=== PATIENT | male | born 1985 | race African-American/Black ===

== ENCOUNTER 2022-11-12 22:01 | Emergency (ER) | payer BC ==
[2022-11-12] MEDS ORDERED: NA CHLORIDE 0.9% 100 ML ONE (22:59)
[2022-11-12] MEDS ORDERED: TRANEXAMIC ACID 1,000 MG/10 ML VIAL IV ONE (22:59)
--- NOTE | 2022-11-13 01:10 | ER ---
Nurse's Notes [facility] Name: Juwan Cannon Age: 37 yrs Sex: Male : 1985 Arrival Date: 11/12/2022 Time: 22:20 Bed 23 Private MD: Diagnosis: ANGIOEDEMA Presentation: 11/12 22:27 Chief complaint: Patient states: C/o upper lip swelling since 2 pm. Coronavirus screen: ll3 Vaccine status: Patient reports being unvaccinated. At this time, the client does not indicate any symptoms associated with coronavirus-19. Ebola Screen: No symptoms or risks identified at this time. Initial Sepsis Screen: Does the patient meet any 2 criteria? No. Patient's initial sepsis screen is negative. Does the patient have a suspected source of infection? No. Patient's initial sepsis screen is negative. Risk Assessment: Do you want to hurt yourself or someone else? Patient reports no desire to harm self or others. Onset of symptoms was November 12, 2022 at 14:00. 22:27 Method Of Arrival: Ambulatory 3 22:27 Acuity: BENTLEY 3 ll3 Triage Assessment: 22:29 General: Appears uncomfortable, Behavior is calm, cooperative. Pain: Complains of pain ll3 in upper lip Pain does not radiate. Pain currently is 7 out of 10 on a pain scale. Neuro: Level of Consciousness is awake, alert, obeys commands, Oriented to person, place, time, situation. Respiratory: Respiratory effort is even, unlabored, Respiratory pattern is regular, symmetrical. Derm: Swelling to upper lip. Historical: - Allergies: 22:29 No Known Allergies; ll3 - Home Meds: 22:29 Norvasc Oral [Active]; Lisinopril Oral [Active]; Aspirin Oral [Active]; ll3 - PMHx: 22:29 Hypertensive disorder; ll3 - PSHx: 22:29 None; ll3 - Immunization history:: Client reports having NOT received the Covid vaccine. - Social history:: Smoking status: Patient denies any tobacco usage or history of. Screenin:09 [facility] ED Fall Risk Assessment (Adult) History of falling in the last 3 months, bb including since admission No falls in past 3 months (0 pts). [facility] ED Fall Risk Assessment (Adult) Confusion or Disorientation No (0 pts) Intoxicated or Sedated No (0 pts) Impaired Gait No (0 pts) Altered Elimination Score/Fall Risk Level 0 - 2 = Low Risk Oriented to surroundings, Maintained a safe environment. Abuse screen: Denies threats or abuse. Nutritional screening: No deficits noted. Tuberculosis screening: No symptoms or risk factors identified. Assessment: 23:09 General: Appears in no apparent distress. uncomfortable, Behavior is calm, cooperative. bb Neuro: Level of Consciousness is awake, alert, obeys commands, Oriented to person, place, time, situation. Cardiovascular: Capillary refill < 3 seconds Patient's skin is warm and dry. Respiratory: Respiratory effort is even, unlabored, Respiratory pattern is regular. GI: No signs and/or symptoms were reported involving the gastrointestinal system. EENT: grossly swollen upper and lower lip. Derm: Skin is dry, Skin is normal, Skin temperature is warm. Musculoskeletal: Circulation, motion, and sensation intact. 23:38 Reassessment: Patient is alert, oriented x 3, equal unlabored respirations, skin bb warm/dry/pink. pt states he is feeling more pressure in his lips Dr Glasgow notified Patient states symptoms have not improved. 11/13 01:28 Reassessment: Patient is alert, oriented x 3, equal unlabored respirations, skin bb warm/dry/pink. pt instructed on need for transfer to [facility]. Patient states symptoms have not improved. 02:39 Reassessment: Patient is alert, oriented x 3, equal unlabored respirations, skin bb warm/dry/pink. [facility] 03:07 Reassessment: Patient is alert, oriented x 3, equal unlabored respirations, skin bb warm/dry/pink. EMS at bedside for transportation to [place]. IV site intact with no erythema or edema. Vital Signs: 11/12 22:27 BP 125 / 91; Pulse 84; Resp 17; Temp 98.7(O); Pulse Ox 100% on R/A; Weight 71.67 kg ll3 (R); Height 5 ft. 10 in. (177.80 cm) (R); Pain 7/10; 23:38 BP 147 / 103; Pulse 66; Resp 16 S; Pulse Ox 99% on R/A; bb 11/13 01:29 BP 127 / 87; Pulse 82; Resp 16 S; Temp 98(O); Pulse Ox 97% on R/A; bb 02:40 BP 136 / 94; Pulse 68; Resp 16 S; Pulse Ox 97% on R/A; bb 11/12 22:27 Body Mass Index 22.67 (71.67 kg, 177.80 cm) ll3 ED Course: 11/12 22:20 Patient arrived in ED. bb 22:21 Jorge Luis Glasgow MD is Attending Physician. sp3 22:29 Triage completed. ll3 22:29 Arm band placed on Patient placed in an exam room, on a stretcher, on pulse oximetry. ll3 23:05 Inserted saline lock: 20 gauge in right antecubital area, using aseptic technique. bb 23:09 Rita Dugan, RN is Primary Nurse. bb 23:09 Patient has correct armband on for positive identification. Adult w/ patient. pt bb accompanied by [facility] guards. 11/13 01:29 No provider procedures requiring assistance completed. Patient transferred, IV remains bb in place. Administered Medications: 11/12 23:09 Drug: Tranexamic Acid 1000 mg Route: IV; Rate: 10 calculated rate; Site: right bb antecubital; 23:19 Follow up: IV Status: Completed infusion; IV Intake: 100ml bb Medication: 23:09 VIS not applicable for this client. bb Intake: 23:19 IV: 100ml; Total: 100ml. bb Outcome: 11/13 01:10 ER care complete, transfer ordered by . sp3 01:29 Instructed on the need for transfer. bb 01:29 Condition: stable bb 03:06 Transferred by ground EMS Transfer form completed. Note: [facility] bb 03:08 Patient left the ED. bb Signatures: Rita Dugan, RN RN bb Jorge Luis Glasgow MD MD sp3 Surendra Pillai RN RN ll3
--- NOTE | 2022-11-13 01:10 | EDPHYS ---
Physician Documentation [facility] Name: Juwan Cannon Age: 37 yrs Sex: Male : 1985 Arrival Date: 11/12/2022 Time: 22:20 Bed 23 Private MD: ED Physician Jorge Luis Glasgow HPI: 11/12 23:08 This 37 yrs old Black Male presents to ER via Ambulatory with complaints of Lips sp3 Swelling. 23:08 37-year-old male with a history of hypertension on lisinopril presents from [place] [id number] facility for chief complaint of upper and lower lip swelling. Patient was initially evaluated by nurse practitioner there who ordered Benadryl and steroids which had no beneficial effect. Patient stated his angioedema was getting worse and so he was then transferred here for evaluation. Patient denies any swelling of his tongue or oropharynx as well as any rash. On review of systems, patient denies headache, neck pain, shortness of breath, chest pain, abdominal pain, nausea, vomiting, diarrhea, skin rash, focal neurodeficit, syncope, near syncope, fever, or any other symptoms at this time.. Historical: - Allergies: 22:29 No Known Allergies; ll3 - Home Meds: 22:29 Norvasc Oral [Active]; Lisinopril Oral [Active]; Aspirin Oral [Active]; ll3 - PMHx: 22:29 Hypertensive disorder; ll3 - PSHx: 22:29 None; ll3 - Immunization history:: Client reports having NOT received the Covid vaccine. - Social history:: Smoking status: Patient denies any tobacco usage or history of. ROS: 23:09 Constitutional: Negative for fever, chills, and weight loss, Eyes: Negative for injury, sp3 pain, redness, and discharge, Neck: Negative for injury, pain, and swelling, Cardiovascular: Negative for chest pain, palpitations, and edema, Respiratory: Negative for shortness of breath, cough, wheezing, and pleuritic chest pain, Abdomen/GI: Negative for abdominal pain, nausea, vomiting, diarrhea, and constipation, Back: Negative for injury and pain, MS/Extremity: Negative for injury and deformity, Skin: Negative for injury, rash, and discoloration, Neuro: Negative for headache, weakness, numbness, tingling, and seizure, Psych: Negative for depression, anxiety, suicide ideation, homicidal ideation, and hallucinations, Allergy/Immunology: Negative for hives, rash, and allergies. 23:09 All other systems are negative. Exam: 23:09 Constitutional: This is a well developed, well nourished patient who is awake, alert, sp3 and in no acute distress. Head/Face: Normocephalic, atraumatic. Eyes: Pupils equal round and reactive to light, extra-ocular motions intact. Lids and lashes normal. Conjunctiva and sclera are non-icteric and not injected. Cornea within normal limits. Periorbital areas with no swelling, redness, or edema. Neck: Trachea midline, no thyromegaly or masses palpated, and no cervical lymphadenopathy. Supple, full range of motion without nuchal rigidity, or vertebral point tenderness. No Meningismus. Chest/axilla: Normal chest wall appearance and motion. Nontender with no deformity. No lesions are appreciated. Cardiovascular: Regular rate and rhythm with a normal S1 and S2. No gallops, murmurs, or rubs. Normal PMI, no JVD. No pulse deficits. Respiratory: Lungs have equal breath sounds bilaterally, clear to auscultation and percussion. No rales, rhonchi or wheezes noted. No increased work of breathing, no retractions or nasal flaring. Skin: Warm, dry with normal turgor. Normal color with no rashes, no lesions, and no evidence of cellulitis. MS/ Extremity: Pulses equal, no cyanosis. Neurovascular intact. Full, normal range of motion. Neuro: Awake and alert, GCS 15, oriented to person, place, time, and situation. Cranial nerves II-XII grossly intact. Motor strength 5/5 in all extremities. Sensory grossly intact. Cerebellar exam normal. Normal gait. 23:09 ENT: Significant angioedema present upper greater than lower lip with no oropharynx involvement or tongue involvement. Patient is not any respiratory distress and his vital signs are normal with normal pulse oxygenation on room air.. Vital Signs: 22:27 BP 125 / 91; Pulse 84; Resp 17; Temp 98.7(O); Pulse Ox 100% on R/A; Weight 71.67 kg ll3 (R); Height 5 ft. 10 in. (177.80 cm) (R); Pain 7/10; 23:38 BP 147 / 103; Pulse 66; Resp 16 S; Pulse Ox 99% on R/A; bb 11/13 01:29 BP 127 / 87; Pulse 82; Resp 16 S; Temp 98(O); Pulse Ox 97% on R/A; bb 02:40 BP 136 / 94; Pulse 68; Resp 16 S; Pulse Ox 97% on R/A; bb 11/12 22:27 Body Mass Index 22.67 (71.67 kg, 177.80 cm) ll3 MDM: 11/12 22:54 Patient medically screened. sp3 23:10 Data reviewed: vital signs, nurses notes. 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 Patient is on lisinopril and is been on so for "several years". Given no oropharynx involvement, we will administer 1 g of TXA IV and evaluate patient's reaction. Suspecting histamine mediated reaction as this is likely bradykinin induced given his TANYA inhibitor usage. Not suspecting anaphylaxis or any other critical findings.. 11/13 00:44 ED course: Patient reevaluated and his angioedema appears to be getting worse with now sp3 worsening of the lower lip. TXA intravenously did not improve patient's symptoms. We will transfer patient to [facility] for general observation and possible further work-up as needed. Airway remains intact with no oropharynx swelling.. 01:09 ED course: Patient was accepted at [facility] under Dr. Gavin.. sp3 11/12 22:48 Order name: Saline Lock; Complete Time: 23:09 bb Administered Medications: 11/12 23:09 Drug: Tranexamic Acid 1000 mg Route: IV; Rate: 10 calculated rate; Site: right bb antecubital; 23:19 Follow up: IV Status: Completed infusion; IV Intake: 100ml bb Disposition Summary: 11/13/22 01:10 Transfer Ordered Transfer Location: [facility]-System sp3 Reason: Higher level of care sp3 Condition: Stable sp3 Problem: new sp3 Symptoms: have worsened sp3 Accepting Physician: Dr. Gavin(11/13/22 03:08) bb Diagnosis - ANGIOEDEMA sp3 Forms: - Medication Reconciliation Form sp3 - SBAR form sp3 Signatures: Rita Dugan RN RN bb Jorge Luis Glasgow MD MD sp3 Surendra Pillai RN RN ll3 Corrections: (The following items were deleted from the chart) 11/13 03:08 01:10 Dr. Gavin sp3 bb
[2022-11-13 03:32] VITALS: TEMP 98; O2SAT 97
[2022-11-13 03:33] VITALS: BP 136/94
== END 2022-11-13 03:08 | disposition short-term general hospital (02) ==
LOC: ER 22:01
DX: T78.3XXA Angioneurotic edema, initial encounter (principal); I10 Essential (primary) hypertension